=== PATIENT | female | born 1980 | race Caucasian/White ===

== ENCOUNTER 2020-02-11 12:08 | Emergency (ER) | payer SELFPAY ==
[~2020-02-11] VITALS: Ht 172.7 cm; Wt 81.6 kg
--- NOTE | 2020-02-11 13:32 | Diagnostic Imaging Report ---
EXAMINATION: FOOT LEFT COMPLETE INDICATION: Trauma COMPARISON: None FINDINGS: No acute fracture or dislocation. Alignment is anatomic. Soft tissues appear unremarkable. IMPRESSION: No acute osseous injury. Signed by: Fabrizio Fagan MD on 02/11/2020 1:28 PM
== END 2020-02-11 14:29 | disposition home or self-care (01) ==
LOC: ER 12:08
DX: S93.525A Sprain of metatarsophalangeal joint of left lesser toe(s), initial encounter (principal); W20.8XXA Other cause of strike by thrown, projected or falling object, initial encounter; Y92.008 Other place in unspecified non-institutional (private) residence as the place of occurrence of the external cause
CPT/HCPCS: 99284